=== PATIENT | female | born 1940 | race Caucasian/White ===

== ENCOUNTER 2021-10-16 13:32 | Emergency (ER) | payer MEDICARE, OTHER ==
[~2021-10-16] VITALS: Ht 162.6 cm; Wt 55.5 kg
[2021-10-16 13:42] VITALS: BP 190/73
--- NOTE | 2021-10-16 15:45 | NUR ---
NO ANSWER IN WAITING ROOM
== END 2021-10-16 17:34 | disposition left against medical advice (07) ==
LOC: ER 13:33
DX: R51.9 Headache, unspecified (principal); Z53.21 Procedure and treatment not carried out due to patient leaving prior to being seen by health care provider; W19.XXXA Unspecified fall, initial encounter; W18.30XA Fall on same level, unspecified, initial encounter; Y93.9 Activity, unspecified; Y92.9 Unspecified place or not applicable; Y99.9 Unspecified external cause status
CPT/HCPCS: 70450